=== PATIENT | female | born 1950 | race Two or more races ===

== ENCOUNTER 2018-02-04 08:40 | Outpatient (CLI) | payer OTHER | END 2018-02-04 09:25 | disposition home or self-care (01) | LOC: NUCLEAR 08:40 | DX: C54.1 Malignant neoplasm of endometrium (principal); C78.02 Secondary malignant neoplasm of left lung; C78.01 Secondary malignant neoplasm of right lung | CPT/HCPCS: 78815; A9552 ==

== ENCOUNTER 2018-06-13 08:47 | Outpatient (CLI) | payer OTHER | END 2018-06-13 10:00 | disposition home or self-care (01) | LOC: NUCLEAR 08:47 | DX: C54.1 Malignant neoplasm of endometrium (principal); Z08 Encounter for follow-up examination after completed treatment for malignant neoplasm | CPT/HCPCS: 78815; A9552 ==

== ENCOUNTER → 2018-08-04 | Outpatient (CLI) | payer OTHER | END | disposition home or self-care (01) | LOC: NUCLEAR 07:38 | DX: C54.1 Malignant neoplasm of endometrium (principal) | CPT/HCPCS: 78472; 78496; A9560 ==